=== PATIENT | male | born 1980 | race African-American/Black ===

== ENCOUNTER 2018-04-08 17:49 | Emergency (ER) | payer OTHER ==
[~2018-04-08] VITALS: Ht 180.3 cm; Wt 92.1 kg
[2018-04-08 18:19] VITALS: BP 123/73; Ht 180.3 cm; Wt 92.1 kg
== END 2018-04-08 20:40 | disposition home or self-care (01) ==
LOC: ED 17:49
DX: R30.0 Dysuria (principal); F17.210 Nicotine dependence, cigarettes, uncomplicated
CPT/HCPCS: 87491; 87591; J0696